=== PATIENT | female | born 2000 | race Caucasian/White ===

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

== ENCOUNTER 2022-03-31 07:16 | Emergency (ER) | payer MEDICAID, SELFPAY ==
[2022-03-31 07:17] VITALS: BP 111/67; PULSE 104; RESP 14; TEMP 36.5; O2SAT 99; BMI 22.1
[2022-03-31 07:43] VITALS: BP 111/67; PULSE 104; RESP 14; TEMP 36.5; O2SAT 99
--- NOTE | 2022-03-31 07:43 | EX.ED.DYSGE1 ---
HPI History of Present Illness Chief Complaint: Complaint Informant: patient Narrative Narrative: Is a 21-year-old female presenting with mother for lower abdominal pain, dysuria and hematuria. She states she woke up with the symptoms. Denies ever having any like this before. States that she did not have any symptoms yesterday. Last menstrual period was 03/07/2022. Denies any abnormal vaginal bleeding or discharge. Is on control and does not think she is . Denies any bowel symptoms. Feels cold but denies any fever. Denies any chest pain or shortness of breath. Notes that she does feel nauseous but states she often get nauseous in the morning she wakes up too early. Took some Tylenol prior to arrival. No other complaints at this time. PFSH PFSH Home Medications diazepam 2 mg tablet 2 mg PO TID PRN PRN Vertigo #15 tabs 11/08/18 [Rx Last Taken Unknown] trazodone 100 mg tablet 100 mg PO DAILY 11/08/18 [History Last Taken Unknown] cephalexin 500 mg capsule 500 mg PO Q8H #21 caps 03/31/22 [Rx Last Taken Unknown] phenazopyridine 200 mg tablet (Pyridium) 200 mg PO TID PRN pain with urination 6 doses #6 tabs 03/31/22 [Rx Last Taken Unknown] Allergy/AdvReac Type Severity Reaction Status Date / Time No Known Allergies Allergy Verified 03/31/22 07:17 Social History Smoking Status: Never smoker ROS ROS ED Constitutional Constitutional ED: Reports chills; Denies fever(s) Eyes Eyes: Denies change in vision ENT ENT ED: Denies rhinorrhea or sore throat Cardiovascular Cardiovascular: Denies chest pain Respiratory/Chest Respiratory/Chest: Denies cough Gastrointestinal Gastrointestinal: Reports abdominal pain and nausea; Denies diarrhea, melena or vomiting Genitourinary Genitourinary ED: Reports dysuria and hematuria Musculoskeletal Musculoskeletal: Denies back pain Integumentary Denies rash Neurologic Neurologic: Denies headache(s) or weakness Psychiatric Psychiatric: Reports anxiety Hematologic/Lymphatic Hematologic/Lymphatic: Denies easy bleeding or easy bruising EXAM Physical Exam Const Vital Signs: 03/31/22 07:17 03/31/22 07:43 Temperature 97.7 F L 97.7 F L Temperature Source Temporal Temporal Pulse Rate 104 H 104 H Respiratory Rate 14 14 Blood Pressure 111/67 111/67 Blood Pressure Mean 81 81 Pulse Ox 99 99 Oxygen Delivery Method Room Air Room Air Positive well nourished and well developed General Appearance ED: well developed and NAD; Negative for pallor HEENT Reports moist mucous membranes Eyes PERRL and EOMs intact bilaterally Neck supple Chest Wall inspection of chest normal and palpation of chest normal Resp normal respiratory effort and clear to auscultation bilaterally Cardio regular rate, regular rhythm and no murmurs GI normal to inspection, nondistended, normoactive bowel sounds Palpation: tender suprapubic; Negative for guarding Back/Spine no CVA tenderness Neuro oriented x3 Motor Exam: Negative for general weakness Psych mental status grossly normal Skin no rashes or lesions noted General Skin Exam: Negative for pallor MDM MDM MDM Narrative Medical decision making narrative: Patient evaluated for sudden onset of dysuria and hematuria. Patient appears uncomfortable but nontoxic in no acute distress. Vital signs are significant for mild tachycardia with a heart rate of 104. Urinalysis shows proteinuria, significant hematuria with 10-25 white blood cells and no bacteria seen. test is negative. Due to her discomfort and hematuria concern for possible obstructive stone. CBC, BMP and CT Noncon added on. Her white blood cell count is mildly elevated 11.5 which is nonspecific. Normal hemoglobin. Patient has normal BUN and creatinine with no significant laboratory normalities. CT of abdomen pelvis shows no acute pathology to explain her presentation. Patient is given IV fluids and Toradol as well as IV Zofran. On repeat evaluation she is improved. Patient will be treated with high-dose Keflex and Pyridium. She states she has Zofran at home to take. She is given referral for urology given her gross hematuria. She is counseled return precautions. Patient verbalized agreement understand this plan. Discharged home in stable condition. Lab Data Attestation: I reviewed the patient's lab results. Labs: Laboratory Results - last 24 hr 03/31/22 03/31/22 03/31/22 08:21 08:54 08:54 WBC 11.5 H RBC 4.70 Hgb 14.2 Hct 41.6 MCV 88.5 MCH 30.2 MCHC 34.1 RDW Std Deviation 39.9 RDW Coeff of Andrei 12.4 Plt Count 377 MPV 9.2 Immature Gran % (Auto) 0.300 Neut % (Auto) 75.5 H Lymph % (Auto) 16.8 L [place] % (Auto) 6.8 Eos % (Auto) 0.3 Baso % (Auto) 0.3 Absolute Neuts (auto) 8.7 H Absolute Lymphs (auto) 1.93 Nucleated RBC % 0 Sodium 140 Potassium 3.8 Chloride 107 Carbon Dioxide 25.0 Anion Gap 8 BUN 12 Creatinine 0.83 Estim Creat Clear Calc 123.73 Est GFR (MDRD) Af Amer 111 Est GFR (MDRD) Non-Af 92 BUN/Creatinine Ratio 14.4 Glucose 101 Calcium 9.1 Urine Color Red Urine Clarity Turbid Urine pH 6.5 Ur Specific [place] 1.025 Urine Protein 500 H Urine Glucose (UA) Normal Urine Ketones 15 H Urine Occult Blood 250 H Urine Nitrite Negative Urine Bilirubin Negative Urine Urobilinogen Normal Ur Leukocyte Esterase 500 H Urine RBC > 100 SEEN Urine WBC 10-25 SEEN Ur Squamous Epith Cells 0 SEEN Urine Bacteria 0 SEEN Urine Mucus 0 SEEN Urine Test Negative Radiography Diagnostic Testing: Clinical Impression(s) from Imaging Studies Abdomen/Pelvis CT 03/31/22 08:42 IMPRESSION: No abdominal or pelvic abnormality Electronically Signed: Rachid Stroud MD at 9:28 EDT Reading Location ID and State: [facility] / [place] Tel , Service support , Discharge Plan Triage Chief Complaint: Complaint ED Provider: Eloise Bo Dx/Rx/DC Orders Clinical Impression: Acute hemorrhagic cystitis, Dysuria Instructions: ED Cystitis Female Adult Prescriptions: New cephalexin 500 mg capsule 500 mg PO Q8H Qty: 21 0RF phenazopyridine [Pyridium] 200 mg tablet 200 mg PO TID PRN (Reason: pain with urination) Qty: 6 0RF No Action trazodone 100 MG tablet 100 mg PO DAILY diazepam 2 MG tablet 2 mg PO TID PRN PRN (Reason: Vertigo) Qty: 15 0RF Primary Care Provider: Jaek Perdomo Referrals: Renea Ponce MD [Med Staff - Active Staff] - 1-2 Weeks Jake Perdomo MD [Primary Care Provider] - Activity Restrictions/Additional Instructions: Take the entire course of antibiotics as prescribed. You may also take ibuprofen as needed for pain. return if you have worsening symptoms. Your CT did not show any signs of a kidney stone or other acute pathology Disposition Disposition: Home, Self Care
[2022-03-31 08:25] LABS: Bacteria 0 SEEN /hpf (None Seen); Mucous, Urine 0 SEEN /hpf (<or=2+); Squamous Epithelial Cells - UA 0 SEEN /hpf (5-10)
[2022-03-31 08:29] LABS: Color, Urine Red (Yellow); Glucose, Dipstick Normal (Normal); Ketone-Dipstick 15 mg/dl (Negative); Leukocyte Esterase-Dipstick 500 /ul (Negative); Nitrite-Dipstick Negative (Negative); Occult Blood-Urine 250 /ul (Negative); Protein-Dipstick 500 mg/dl (Negative); Specific Gravity, Urine 1.025 (1.002-1.030); Urine Bilirubin Dipstick Negative (Negative); Urine Clarity Turbid (Clear); Urine Urobilinogen Normal (Normal); Urine pH 6.5 (5.0 - 8.0)
[2022-03-31 08:36] LABS: Red Blood Cells-Urine > 100 SEEN /hpf (0-5); White Blood Cells 10-25 SEEN /hpf (0-5)
[2022-03-31 08:38] LABS: Internal QC Validated? YES +Cl - CLEAR BKGD; Pregnancy, Urine Negative Negative
--- NOTE | 2022-03-31 08:42 | CT_ITS ---
EXAM: CT ABDOMEN AND PELVIS WITHOUT INTRAVENOUS CONTRAST CLINICAL INDICATION: pelvic Pain, hematuria, TECHNIQUE: Helically acquired images were obtained of the abdomen and pelvis without intravenous contrast. This CT exam was performed using one or more of the following dose reduction techniques: automated exposure control, adjustment of the mA and/or kV according to patient size, and/or use of iterative reconstruction technique. This report was created using [employer] report generation technology. COMPARISON: None. FINDINGS: LOWER THORAX: Normal. Lung bases are clear. No cardiomegaly. No pericardial effusion. ABDOMEN: LIVER: Normal. Homogeneous. GALLBLADDER AND BILE DUCTS: Normal. No calcified gallstones. No gallbladder distention or wall edema. No intra- or extrahepatic biliary ductal dilation. PANCREAS: Normal. No focal cystic mass. SPLEEN: Normal. Normal size without focal cystic or solid mass. ADRENALS: Normal. No nodules. KIDNEYS AND URETERS: Slightly dense medullary pyramids are noted of uncertain significance. No evidence of urinary tract stone disease. STOMACH AND BOWEL: Normal. No bowel distention. No focal inflammatory change. PELVIS: APPENDIX: Appendix is visualized and normal in appearance. BLADDER: Urinary bladder is contracted. REPRODUCTIVE: Unremarkable as visualized. No mass. ABDOMEN and PELVIS: INTRAPERITONEAL SPACE: Normal. No ascites or other fluid collection. No free air. BONES/JOINTS: Normal. No suspicious lytic or blastic abnormality. SOFT TISSUES: Normal. No discrete abdominal or pelvic wall hernia. VASCULATURE: Normal. Abdominal aorta is non-dilated. LYMPH NODES: Normal. No enlarged lymph nodes. CT/Abdomen/Pelvis without Cont IMPRESSION: No abdominal or pelvic abnormality Electronically Signed: Rachid Stroud MD at 9:28 EDT ,
[2022-03-31 09:00] LABS: Absolute Lymphocyte Count 1.93 X10^3/uL (0.83-4.51); Absolute Neutrophil Count 8.7 X10^3/uL (2.0-7.7); Basophil# 0.04 X10^3/uL; Basophil% 0.3 % (0-1); Eosinophil# 0.04 X10^3/uL; Eosinophils% 0.3 % (0-5); Hematocrit 41.6 % (37-47); Hemoglobin 14.2 g/dL (12.0-15.0); Lymphocyte # 1.93 X10^3/ul (0.83-4.51); Lymphocyte % 16.8 % (19-41); Mean Corp Hgb Conc 34.1 g/dL (32-36); Mean Corpuscular Hgb 30.2 pg (27.0-32.0); Mean Corpuscular Volume 88.5 fL (81-99); Mean Platelet Vol. 9.2 fl (6.2-12.0); Monocyte# 0.78 X10^3/uL; Monocyte% 6.8 % (0-10); NRBC Flagged by Analyzer 0 % (0-5); Neutrophil # 8.68 X10^3/uL (2.7-7.7); Neutrophil % 75.5 % (47-70); Platelet Count 377 K/mm3 (150-450); RBC Distribution Width CV 12.4 % (11.6-14.6); RBC Distribution Width SD 39.9 fl (35.1-43.9); White Blood Count 11.5 K/mm3 (4.4-11.0)
[2022-03-31 09:13] LABS: Anion Gap 8 (5-15); BUN 12 mg/dL (7-18); BUN/Creat Ratio 14.4 RATIO (10-20); Calcium,Total 9.1 mg/dL (8.5-10.1); Chloride 107 mmol/L (98-107); Creatinine, Serum 0.83 mg/dL (0.55-1.02); EST Glomerular Filtration Rate 92 mL/min (>60); Est Glom Filt Rate - Afr Amer 111 mL/min (>60); Estimated Creatinine Clearance 123.73 ml/min; Glucose 101 mg/dL (74-106); Potassium 3.8 mmol/L (3.5-5.1); Sodium Level 140 mmol/L (136-145)
[2022-03-31] MEDS: Ketorolac 15 MG/ML Vial IV (09:19)
[2022-03-31] MEDS: 0.9% Normal Saline 1,000 ML 999 ML IV (09:20)
[2022-03-31] MEDS: Ondansetron 4 MG/2 ML Vial IV (09:20)
[2022-03-31] MEDS: Cephalexin 250 MG Capsule 500 MG PO (10:52)
[2022-03-31] MEDS: Phenazopyridine 95 MG Tablet 190 MG PO (10:53)
== END 2022-03-31 11:32 | disposition home or self-care (01) ==
PROVIDERS: Emergency Provider Emergency Medicine; PCP Family Medicine; Visit Provider Emergency Medicine
DX: N30.91 Cystitis, unspecified with hematuria (principal); R30.0 Dysuria
CPT/HCPCS: 74176; 80048; 81001; 81025; 85025; 87077; 87086; 87088; 87186; 96361; 96374; 96375; 99284; J7030; A4216; J2405